=== PATIENT | female | born 1985 | race Two or more races ===

== ENCOUNTER → 2024-05-20 | Outpatient (CLI) | payer MEDICAID, SELFPAY ==
--- NOTE | 2024-05-20 13:38 | XR_ITS ---
Examination: Complete OB ultrasound, less than 14 weeks, transabdominal Date and time of exam: May 20, 2024 1425 hours INDICATIONS: Pelvic pain and heavy vaginal bleeding beginning 8 days ago, ultrasound May 09, 2024 anterior intrauterine gestational sac corresponding to 6 weeks 5 days gestational age Technique: Obstetrical ultrasound images less than 14 weeks performed via transabdominal imaging Findings: Uterus 10.1 x 4.8 x 6.3 cm Empty intrauterine gestational sac, no pole, corresponding to 6 weeks 5 days gestational age No cardiac activity Right ovary 4.1 x 1.4 x 3.1 cm arterial flow, 18 mm follicular cyst Left ovary 3.7 x 1.6 x 2.7 cm arterial flow IMPRESSION: Again noted empty intrauterine gestational sac corresponding to 6 weeks 5 days gestational age, suspicious for embryonic demise Recommend continued short-term follow-up pelvic sonography
== END | disposition home or self-care (01) ==
LOC: CDIM 13:05
PROVIDERS: PCP Physician Assistant; Referring Provider Obstetrics & Gynecology; Visit Provider Obstetrics & Gynecology
DX: O02.0 Blighted ovum and nonhydatidiform mole (principal); Z3A.01 Less than 8 weeks gestation of pregnancy
CPT/HCPCS: 76801

== ENCOUNTER 2024-05-21 06:05 | Day surgery (SDC) | payer MEDICAID, SELFPAY ==
[2024-05-21] VITALS (9 sets, daily range): BP systolic 115–168; BP diastolic 67–83; PULSE 67–85; RESP 12–20; TEMP 36.2–37.2; O2SAT 99–100; BMI 25.4
--- NOTE | 2024-05-21 06:44 | PD.EDVAGBL ---
ED OB Contraction Preg RMI/HPI General Chief complaint: Vaginal Bleeding Stated complaint: VAGINAL BLEEDING, 8 WEEKS Time Seen by Provider: 05/21/24 06:21 Arrival date/time: 05/21/24 06:05 38-year-old female G4, presents emergency department today with complaints of vaginal bleeding there are no other associated symptoms or aggravating factors no other modifying factors, patient denies taking medication before coming to ER today Limitations: no limitations Related Data Home Medications ?Medication ?Instructions ?Recorded ?Confirmed No Known Home Medications 05/21/24 05/21/24 Allergies Allergy/AdvReac Type Severity Reaction Status Date / Time No Known Allergies Allergy Verified 05/21/24 06:06 Review of Systems Review of Systems Systems Reviewed: All systems reviewed, normal except as documented Constitutional Constitutional: Reports system reviewed and no additional complaints, except as documented, Denies fever(s) and Denies headache(s) Eyes Eyes: Reports system reviewed and no additional complaints, except as documented and Denies blurry vision ENT Ears, Nose, Mouth, and Throat: Reports system reviewed and no additional complaints, except as documented, Denies headache(s), Denies nasal congestion and Denies nasal discharge Cardiovascular Cardiovascular: Reports system reviewed and no additional complaints, except as documented, Denies chest pain and Denies dyspnea Respiratory Respiratory: Reports system reviewed and no additional complaints, except as documented, Denies chest congestion, Denies cough and Denies dyspnea Gastrointestinal Gastrointestinal: Reports system reviewed and no additional complaints, except as documented and Denies abdominal pain Genitourinary Genitourinary: Reports system reviewed and no additional complaints, except as documented and Reports abnormal vaginal bleeding Integumentary/Breasts Skin/Breast: Reports system reviewed and no additional complaints, except as documented and Denies rash Neurologic Neurologic: Reports system reviewed and no additional complaints, except as documented, Reports as per HPI and Denies headache(s) Past Medical History Social History SMOKING STATUS: Never smoker ED Exam General Limitations: Present no limitations General appearance: Present alert and in no apparent distress Head Head exam: Present atraumatic Eye Eye exam: Present normal appearance, PERRL and EOMI ENT ENT exam: Present normal exam, normal oropharynx and mucous membranes moist Neck Neck exam: Present normal inspection, full ROM and trachea midline Chest Chest inspection: Present normal inspection and symmetric chest wall rise Respiratory Respiratory exam: Present normal lung sounds bilaterally Cardiovascular Cardiovascular exam: Present regular rate, normal rhythm and normal heart sounds Abdominal Exam Abdominal exam: Present soft and normal bowel sounds; Absent distention, tenderness, guarding, rebound or rigidity Extremities Exam Extremities exam: Present normal inspection and full ROM Back Exam Back exam: Present normal inspection and full ROM Neurological Exam Neurological exam: Present alert, oriented X3 and CN II-XII intact Psychiatric Psychiatric exam: Present normal affect and normal mood Skin Skin exam: Present warm, dry, intact and normal color Course Quality Measures none Orders Category Date Time Status Patient Condition Routine Admission 05/21/24 09:00 Ordered SDC [Place in Surgical Day Care] Routine Admission 05/21/24 09:01 Active Activity as Tolerated Routine Care 05/21/24 09:00 Ordered COVID-19 Screening Questionnaire NOW Care 05/21/24 08:46 Active Decision to Admit X1 Care 05/21/24 08:46 Active Insert IV NOW Care 05/21/24 06:55 Active May take PO meds w/sips of H2O PRN Care 05/21/24 09:00 Active NPO NOW Care 05/21/24 08:46 Active NPO NOW Care 05/21/24 09:00 Active Obtain Written Consent For: NOW Care 05/21/24 09:00 Active Sterile Vaginal Exam Stat Care 05/21/24 Ordered Consult to Gynecology Stat Cons 05/21/24 08:46 Ordered Diet NPO (NOW) Diet 05/21/24 08:46 Completed Diet NPO (NOW) Diet 05/21/24 09:00 Active ABO/RH Type Stat Lab 05/21/24 07:24 Completed Beta HCG,Quantitative Stat Lab 05/21/24 07:24 Completed CBC Stat Lab 05/21/24 07:24 Completed Comprehensive Metabolic Panel Stat Lab 05/21/24 07:24 Completed Morphine Inj Med 05/21/24 07:25 Discontinued 10 mg .ROUTE .STK-MED ONE Morphine Inj [Morphine Sulf Inj] Med 05/21/24 06:55 Discontinued 2 mg IVP X1 ONE Ondansetron Inj [Zofran Inj] Med 05/21/24 06:56 Discontinued 4 mg IV X1 ONE Sodium Chloride 0.9% 1000 ml [Ns] 1,000 ml Med 05/21/24 06:55 Active IV 125 mls/hr Code Status Routine Oth 05/21/24 09:00 Ordered Vital Signs Vital signs: Vital Signs Temperature 98.9 F 05/21/24 06:13 Pulse Rate 85 05/21/24 06:13 Respiratory Rate 19 05/21/24 06:13 Blood Pressure 168/83 H 05/21/24 06:13 Pulse Oximetry (%) 99 05/21/24 06:13 Oxygen Delivery Method Room Air 05/21/24 06:13 O2 saturation 99% room air within normal limits Vaginal Bleeding MDM Narrative MDM Narrative: 38-year-old female G4, presents emergency department today with complaints of vaginal bleeding there are no other associated symptoms or aggravating factors no other modifying factors, patient denies taking medication before coming to ER today On exam patient does not appear ill or toxic in no acute distress patient has no fever nausea or vomiting I reviewed patient's ultrasounds patient had 2 ultrasounds on an outpatient basis 1 on the and an ultrasound completed yesterday. 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 Hamilton he will take patient for D&C Patient discharged home in no distress to follow-up with primary care doctor in the next 24 to 48 hours and for any worsening symptoms to return to the ER immediately Patient data External records reviewed:: [facility] previous records Clinical information provided by:: patient Social determinants that could affect healthcare access:: none Patient has the following chronic illnesses:: None How is presenting disease/condition affected by chronic disease/condition?: no chronic disease Evaluation data The following diagnostics were reviewed and interpreted by me:: lab results and radiology exam(s) Lab and/or radiology exams considered but not ordered:: Labs and radiology obtain Interpretation Summary: Reviewed by me Medications / Prescriptions Medications or Prescriptions considered but not ordered:: No meds Medication administrations:: Medication Administration History Sodium Chloride (Ns) 1,000 mls @ 125 mls/hr IV .Q8H ONE Stop: 05/21/24 14:54 Last Admin: 05/21/24 07:38 Dose: 125 mls/hr Documented By: ARF Discontinued Medications Morphine Sulfate (Morphine Sulf Inj 4 Mg/Ml Vial) 2 mg IVP X1 ONE Stop: 05/21/24 06:56 Last Admin: 05/21/24 07:40 Dose: 2 mg Documented By: ARF Morphine Sulfate (Morphine Sulf Inj 10 Mg/Ml Vial) Confirm Administered Dose 10 mg .ROUTE .STK-MED ONE Stop: 05/21/24 07:26 Last Admin: 05/21/24 07:40 Dose: Not Given Documented By: ARF Non-Admin Reason: Other, see note Ondansetron HCl (Ondansetron Inj 2 Mg/Ml Inj 2 Ml) 4 mg IV X1 ONE; Protocol Stop: 05/21/24 06:57 Last Admin: 05/21/24 07:38 Dose: 4 mg Documented By: ARF No meds Consultations Consultation(s) initiated? (list below): No Diagnosis Vaginal Bleeding Differential Diagnosis: missed and threatened Most likely diagnosis given after review of the tests above:: Missed Admission Indicated Admission indicated?: indicated Admission Request Was there a request for admission?: Yes Admission Attestation Admission request attestation: Discussed case with [] from Hospitalist service regarding admission. Discussed patients ED course, exam findings, labs, and radiology results. The Hospitalist [agrees,declines] to accept the patient for admission. Disposition Plan Disposition Plan: Admit Discharge Plan Plan Patient Disposition: Admit Acute Care w/in Hospital Disposition Comment: Stable Problem List Clinical Impression: Missed , Vaginal bleeding during , Pelvic pain PA/PAINT BOOTH OPERATOR Supervising Physician BRIANNE/PAINT BOOTH OPERATOR Supervising Physician: Dr Forbes
[2024-05-21 07:36] LABS: Basophils % (Auto) 1 % (0-2.5); Eosinophils # (Auto) 0.1 Thou/mm3 (0.0-0.5); Eosinophils % (Auto) 2 % (0-10); Hematocrit 30.3 % (36.0-46.0); Hemoglobin 9.2 g/dL (12.0-16.0); Immature Granulocytes % (Auto) 1 % (0-0); Immature Granulocytes Auto 0.04 Thou/mm3 (0.00-0.00); Lymphocytes # (Auto) 1.8 Thou/mm3 (1.0-4.8); Lymphocytes % (Auto) 23 % (10-50); Mean Corpuscular HGB Conc 30.4 g/dl (31.0-37.0); Mean Corpuscular Hemoglobin 21.5 pg (25.0-35.0); Mean Corpuscular Volume 71 fL (80-100); Monocytes # (Auto) 0.6 Thou/mm3 (0.0-0.8); Monocytes % (Auto) 7 % (0-12); Neutrophils # (Auto) 5.4 Thou/mm3 (1.8-7.7); Neutrophils % (Auto) 67 % (37-80); Nucleated Red Blood Cell % 0 /100 WBC (0); Platelet Count 363 Thou/mm3 (140-440); RDW Standard Deviation 45.5 fL (36.4-46.3); Red Blood Count 4.27 Miln/mm3 (4.00-5.20); White Blood Count 8.1 Thou/mm3 (3.6-11.0)
[2024-05-21] MEDS: ONDANSETRON INJ 2 MG/ML INJ 2 ML 4 MG IV (07:38)
[2024-05-21] MEDS: SODIUM CHLORIDE 0.9% 1000 ML 1,000 ML 125 ML IV (07:38)
[2024-05-21] MEDS: MORPHINE SULF INJ 4 MG/ML VIAL 2 MG IVP (07:40)
[2024-05-21 08:04] LABS: Alanine Aminotransferase 74 U/L (10-49); Albumin, Serum 4.1 gm/dL (3.5-5.0); Albumin/Globulin Ratio 1.4 (1.2-2.2); Alkaline Phosphatase 69 U/L (46-116); Anion Gap 7 (7-16); Aspartate Amino Transferase 69 U/L (0-34); BUN/Creatinine Ratio 9 Ratio (12-20); Bilirubin,Total 0.3 mg/dL (0.3-1.2); Blood Urea Nitrogen 6 mg/dL (9-23); Carbon Dioxide 22.6 mMol/L (20.0-31.0); Chloride 107 mMol/L (98-107); Creatinine (Component) 0.7 mg/dL (0.6-1.3); Estimated Creatinine Clearance 89.3 mL/min (>60); Glucose 129 mg/dL (74-106); Osmolality,Calculated 273 (275-295); Sodium 137 mMol/L (136-145); Total Protein 7.1 gm/dL (5.7-8.2); eGFR > 60 See Note
[2024-05-21 08:40] LABS: Beta HCG,Quantitative 9858 mIU/mL (<5.0)
--- NOTE | 2024-05-21 09:10 | ESHP_ITS ---
Documentation for date of: 05/21/24 DATA CONVERSION OPERATOR - HPI History of Present Illness History of present illness: Ms. LEA is a 38 year old female who presented to the emergency room for the second time within a week with ongoing uterine bleeding in early . Patient had an ultrasound last week which was repeated today and both of them are consistent with entry gestational sac without any evidence of pole. She reports heavy uterine bleeding changing pads every 15 to 20 minutes with occasional weakness and dizziness. Patient denies any fevers or chills or any other systemic complaints. Review of Systems Review of Systems Systems Reviewed: All systems reviewed, normal except as documented Meds Home Medications and Allergies Home Medications ?Medication ?Instructions ?Recorded ?Confirmed ?Type No Known Home Medications 05/21/24 05/21/24 History Allergies Allergy/AdvReac Type Severity Reaction Status Date / Time No Known Allergies Allergy Verified 05/21/24 06:06 Exam - DATA CONVERSION OPERATOR Vital Signs Temp Pulse Resp BP Pulse Ox O2 Del Method 98.9 F 85 19 168/83 H 99 Room Air 05/21/24 06:13 05/21/24 06:13 05/21/24 06:13 05/21/24 06:13 05/21/24 06:13 05/21/24 06:13 Constitutional Constitutional: no acute distress Routine HEENT Exam Head: Present normocephalic and atraumatic Eye: Present EOMI and PERRL ENT: Present mucous membranes moist Routine Neck Exam Neck: Present supple and trachea midline Routine Respiratory Exam Respiratory: Present chest non-tender, lungs clear, normal breath sounds and no resp distress Routine Cardiovascular Exam Cardiovascular: Present RRR Routine Abdominal Exam Abdominal: Present soft and normoactive bowel sounds Routine Extremities Exam Extremities: Present full ROM Routine Skin Exam Skin: Present intact and dry Routine Neurological Exam Neurological: Present alert, oriented X3 and CN II-XII intact Routine Psychiatric Exam Psychiatric: Present normal affect and normal thought process DATA CONVERSION OPERATOR - Results Labs 05/21/24 07:24 05/21/24 07:24 Labs: Short CBC 05/21/24 Range/Units 07: WBC 8.1 (3.6-11.0) Thou/mm3 Hgb 9.2 L (12.0-16.0) g/dL Hct 30.3 L (36.0-46.0) % Plt Count 363 (140-440) Thou/mm3 BMP 05/21/24 07:24 Sodium 137 Potassium 4.0 Chloride 107 Carbon Dioxide 22.6 BUN 6 L Creatinine 0.7 Glucose 129 H Calcium 9.0 Liver Function 05/21/24 Range/Units 07:24 Total Bilirubin 0.3 (0.3-1.2) mg/dL AST 69 H (0-34) U/L ALT 74 H (10-49) U/L Alkaline Phosphatase 69 (46-116) U/L Albumin 4.1 (3.5-5.0) gm/dL Assessment and Plan Assessment and plan (1) Vaginal bleeding during : Status: Acute (2) Missed : Status: Acute Assessment and plan: 38-year-old with spontaneous incomplete Reviewed all treatment options with the patient including observation versus medication versus surgical treatment After consideration of all options patient elected in favor of surgical treatment. Reviewed and signed informed consents for suction D&C. Place in ambulatory status for above procedure Orders placed in the computer. Patient added on for surgical schedule Quality Measures Quality Measures none
--- NOTE | 2024-05-21 12:20 | SUR.PHASEI ---
1220: Pt. AAOx4, vitals stable, breathing unlabored, no complaint of pain or nausea, peripad in place CDI, no active bleed noted, report received from MD Crockett and Harmony FREED.
--- NOTE | 2024-05-21 12:24 | PD.GYNPROC ---
Operative Note - LEASING MACHINE TENDER Procedure Date of procedure: 05/21/24 Procedure Performed: Suction dilatation and curettage Indication: 38-year-old with missed with retained products of conception Anesthesia type: General Procedure description: Informed consent was obtained and the patient was taken to the operating room.? Identity was confirmed by double identifiers and she was placed on the operating table.? General anesthesia was administered and she was now positioned on Wale stirrups in the dorsal lithotomy position.? The perineum was prepped in the usual sterile fashion and sterile drapes were applied.? A straight catheter was used to empty the bladder. A weighted speculum was placed in the posterior vaginal wall.? A right angle retractor was used to retract the anterior wall.? A single-tooth tenaculum was used to grasp the anterior lip of the cervix and the cervix was placed under traction.? The cervical length from the external to the internal loss was measured, and a uterine sound was used to measure the uterine length.? The cervix was noted to be dilated to about 12 mm.? Our 12 mm suction cannula was introduced and multiple gentle passes were made until all tissue and blood clots were evacuated.? Endometrial great was palpated, and the uterus was noted to contract down.? The suction cannula was removed and a gentle curettage was performed using a standard curette.? All instruments were now withdrawn.? Uterine bleeding was noted to be minimal\ The tenaculum was removed from the cervix.? The cervix was visualized and noted to be adequately hemostatic.? The speculum was removed from the vaginal canal.? The patient was now cleaned, undraped, taken out of lithotomy position, general anesthesia was reversed and she was not transferred to recovery room in stable and awake condition.? The patient tolerated the entire procedure well.? All instrument, sponge and lap counts were correct x2. Estimated blood loss (ml): 200 Surgical staff Operation Date: 05/21/24 10:45 <No data on this case meets the specified criteria> Diagnosis Discharge Diagnosis (1) Vaginal bleeding during : Status: Acute (2) Missed : Status: Acute Problem List Completed Was Problem List Reviewed/Reconciled?: Yes
[2024-05-21] MEDS: fentaNYL CIT INJ 50 mCg/ML AMP 2ML 25 MCG IV ×2 (12:46→13:09)
--- NOTE | 2024-05-21 13:40 | SUR.PHASEII ---
1315: pt resting in bed comfortably, no complaints of pain at this time, peripad in place-clean and dry, VS stable, report from Cher FREED 1340: pt awake, alert, able to follow commands, breathing unlabored, peripad in place-clean and dry, VS stable, discharge instructions given using telephone manga artist Swathi ID#[id number] with spouse at bedside-all questions answered, pt able to dress self and ambulate with steady gait, pt discharged via wheelchair with all belongings and copies of discharge paperwork
== END 2024-05-21 13:40 | disposition home or self-care (01) ==
LOC: SERX 09:09 → S2EX 09:17
PROVIDERS: Nurse Practitioner Primary Care; Emergency Provider Emergency Medicine; PCP Family Medicine; Referring Provider Obstetrics & Gynecology; Visit Provider Obstetrics & Gynecology
PROC: (CPT 58120; principal; 2024-05-21 10:30)
DX: O03.4 Incomplete spontaneous abortion without complication (principal); O20.9 Hemorrhage in early pregnancy, unspecified
CPT/HCPCS: 59812; 36415; 80053; 84702; 85025; 86900; 86901; 99285; A4217; J2210; J2250; J2270; J2405; J2704; J2765; J3010; J7030